=== PATIENT | female | born 2000 | race African-American/Black ===

== ENCOUNTER 2025-05-16 09:39 | Emergency (ER) | payer MEDICAID ==
[~2025-05-16] VITALS: Ht 170.2 cm; Wt 114.0 kg
[2025-05-16 09:44] VITALS: O2SAT 100
[2025-05-16 11:22] VITALS: BP 133/89; PULSE 98; RESP 16; TEMP 36.9; O2SAT 100
== END 2025-05-16 11:23 | disposition home or self-care (01) ==
LOC: ER 09:39
DX: M25.532 Pain in left wrist (principal); M25.531 Pain in right wrist; M54.9 Dorsalgia, unspecified
CPT/HCPCS: 73110; 99283